=== PATIENT | female | born 1945 | race Caucasian/White ===

== ENCOUNTER 2017-02-26 14:23 | Emergency (ER) | payer MEDICARE ==
[~2017-02-26] VITALS: Ht 165.1 cm; Wt 75.0 kg
[2017-02-26] MEDS ORDERED: TRAMADOL HYDROC50 MG PO (15:31)
[2017-02-26 16:15] VITALS: BP 143/63
== END 2017-02-26 16:15 | disposition home or self-care (01) ==
LOC: ED 14:23
PROC: 2W3CX1Z Immobilization of Right Lower Arm using Splint (ICD-10-PCS; principal; 2017-02-26)
DX: S52.501A Unspecified fracture of the lower end of right radius, initial encounter for closed fracture (principal); W01.0XXA Fall on same level from slipping, tripping and stumbling without subsequent striking against object, initial encounter; Y93.01 Activity, walking, marching and hiking; Y92.008 Other place in unspecified non-institutional (private) residence as the place of occurrence of the external cause